=== PATIENT | male | born 1995 | race African-American/Black ===

== ENCOUNTER 2019-11-28 13:15 | Emergency (ER) | payer MEDICAID ==
[~2019-11-28] VITALS: Ht 188 cm; Wt 90.7 kg
[2019-11-28 13:15] VITALS: BP 152/90
--- NOTE | 2019-11-28 13:15 | NUR ---
Pt arrived by ambulance, pt was triaged outside ambulance bay and sent to [facility] tent for MSE.
--- NOTE | 2019-11-28 13:21 | NUR ---
23/M biba from home c/o cough with bloody sputum x3 days. Denies fever or chills. No cough was present during triage. Pt was sent to [facility] for isolation precautions. No signs os respiratory distress. RR even and unlabored. hx denies
--- NOTE | 2019-11-28 14:42 | NUR ---
Patient discharged with v/s stable. Written and verbal after care instructions given and explained. Patient alert, oriented and verbalized understanding of instructions. Ambulatory with steady gait. All questions addressed prior to discharge. ID band removed. Patient advised to follow up with PMD. Rx of albuterol/phenergan w codeine/azithromycin/ibuprofen given. Patient educated on indication of medication including possible reaction and side effects. Opportunity to ask questions provided and answered.
[2019-11-28 14:43] VITALS: BP 152/90
== END 2019-11-28 14:42 | disposition home or self-care (01) ==
LOC: MED 13:15
DX: J18.9 Pneumonia, unspecified organism (principal); Z20.828 Contact with and (suspected) exposure to other viral communicable diseases; R04.2 Hemoptysis; F17.200 Nicotine dependence, unspecified, uncomplicated
CPT/HCPCS: 71045; 99284; U0003